=== PATIENT | female | born 1985 | race Caucasian/White ===

== ENCOUNTER 2020-01-06 22:55 | Emergency (ER) | payer OTHER ==
[~2020-01-06] VITALS: Ht 157.5 cm; Wt 90.7 kg
[2020-01-06 23:04] VITALS: BP 151/99
[2020-01-06] MEDS ORDERED: TYLENOL WITH CO1 TA1 PO (23:19)
[2020-01-06] MEDS ORDERED: PENICILLIN VK500 M1 PO (23:19)
== END 2020-01-06 23:28 | disposition home or self-care (01) ==
LOC: M.ERS 22:55
DX: K08.89 Other specified disorders of teeth and supporting structures (principal); F17.210 Nicotine dependence, cigarettes, uncomplicated; Z98.890 Other specified postprocedural states